=== PATIENT | male | born 1985 | race African-American/Black ===

== ENCOUNTER 2016-09-11 09:40 | Emergency (ER) | payer OTHER ==
[~2016-09-11] VITALS: Ht 182.9 cm; Wt 85.0 kg
[~2016-09-11 09:40] MED LIST: Z.0.NO CURRENT MEDS
[2016-09-11 09:43] VITALS: BP 100/62; PULSE 77; RESP 14; TEMP 98; O2SAT 97
--- NOTE | 2016-09-11 10:36 | PD ---
HPI Chief Complaint: Headache Time Seen by Provider: 10:26 Travel History International Travel<30 days: No Contact w/Intl Traveler<30days: No Traveled to known affect area: No History of Present Illness HPI 31-year-old male presents to the emergency department requesting headache medication and a work release note for his headaches. Patient has history of hydrocephalus when he was a child with shunt placement. He says the headaches that he is having he has been having since he was a child and they are consistent and unchanged. They happen about once a week for approximately 30 minutes and then they go away. He rates the headache 5/10 when they do occur. He says they are right-sided and they feel like an aching pain. He denies headache at this time. He denies nausea, vomiting. Denies focal deficits or weakness. Denies fever, chills. He has not taken any medications or tried any treatments to alleviate his symptoms. No known aggravating or relieving factors. Allergies to cultivated Oat Cali. Denies other significant past medical history. No other modifying factors or associated signs and symptoms. History Social History Alcohol Use: No Tobacco Use: No Allergies-Medications (Allergen,Severity, Reaction): Coded Allergies: Cultivated Oat Pollen (Verified Allergy, Unknown, 09/11/16) Reported Meds & Prescriptions Reported Meds & Active Scripts Active Reported No Current Meds (Miscellaneous Medication) [facility] [place] Review of Systems Except as stated in HPI: all other systems reviewed are Neg Physical Exam Narrative GENERAL: Well-nourished, well-developed patient, in no acute distress; afebrile , nontoxic-appearing SKIN: Warm and dry. HEAD: Atraumatic. Normocephalic. No facial droop noted. Tongue midline. EYES: Pupils equal and round at 3 mm with brisk reaction. No scleral icterus. No injection or drainage. PERRLA. EOMI. ENT: Mucosa pink and moist. Airway patent. NECK: Trachea midline. No lymphadenopathy. CARDIOVASCULAR: Regular rate . RESPIRATORY: No accessory muscle use. GASTROINTESTINAL: Flat. MUSCULOSKELETAL: No obvious deformities. No clubbing. No cyanosis. No edema. NEUROLOGICAL: Awake and alert. Oriented 3. No obvious cranial nerve deficits. Motor grossly within normal limits. Normal speech. No ataxia. No mid -line drift. Moves all extremities. 5/5 strength to all extremities. PSYCHIATRIC: Appropriate mood and affect; insight and judgment normal. Data Data Last Documented VS Vital Signs Date Time Temp Pulse Resp B/P Pulse Ox O2 Delivery O2 Flow Rate FiO2 09/11/16 10:08 60 18 99 Room Air 09/11/16 09:43 98.0 100/62 MDM Medical Screen Exam Complete: Yes Emergency Medical Condition: No Differential Diagnosis Chronic headaches, medical clearance, acute headaches Narrative Course 31-year-old male with complaint of chronic headaches since he was a child. He has had shunt placement very to hydrocephalus. He says his headaches are consistent with past headaches since he was a child, without worsening. He denies headache currently. When I ask him what his emergency is today he says he would like medication for his headaches and a work release note. Neuro exam is unremarkable. With the patient's headaches being consistent since childhood and patient denies headache at this time, or worsening of headaches, I do not feel imaging is necessary and the patient can follow up outpatient. Vital signs are stable and the patient is stable for outpatient follow-up and treatment. The patient has no urgent or emergent medical complaints. There is no emergent or urgent medical need at this time. I instructed the patient to follow up with their primary care provider. A medical screening exam was performed: At the time of evaluation the presenting medical condition was determined not to be of an emergent nature. The patient was given the option of receiving additional care, but declined. Patient was given options for additional community resources from which to obtain care. The Patient Has Been advised to seek medical attention for their presenting complaint. The patient has been advised to return to the ER at any time if an emergent condition develops. Primary Impression: Encounter for medical screening examination Condition: Stable Dania Thakur Sep 11, 2016 10:36
== END 2016-09-11 10:43 | disposition left against medical advice (07) ==
LOC: NEPB 09:40
DX: R51 Headache (principal)
CPT/HCPCS: 99281

== ENCOUNTER 2016-10-24 18:48 | Emergency (ER) | payer OTHER ==
[~2016-10-24] VITALS: Ht 182.9 cm; Wt 83.5 kg
[2016-10-24 18:49] VITALS: BP 120/62; PULSE 71; RESP 16; TEMP 98; O2SAT 100
[2016-10-24] MEDS ORDERED: ZOFR4TAB PO (19:22)
--- NOTE | 2016-10-24 19:25 | PD ---
HPI Chief Complaint: GI Complaint Time Seen by Provider: 19:22 Travel History International Travel<30 days: No Contact w/Intl Traveler<30days: No Traveled to known affect area: No History of Present Illness HPI 31-year-old black male presents to emergency Department with complaints of nausea. He has had a decrease in appetite and has had general malaise. He denies actually vomiting. He denies any fever or chills. No ear pain, sore throat, cough, shortness of breath, abdominal pain, diarrhea or urinary symptoms. Symptoms are mild. [facility] Past Medical History Narrative Medical Asthma Asthma: Yes Tetanus Vaccination: < 5 Years Past Surgical History Surgical History: No Previous Surgery Other Surgery: Yes (had trach as baby and fluid drained from brain as teenager. ) Social History Alcohol Use: No Tobacco Use: No Substance Use: No Allergies-Medications (Allergen,Severity, Reaction): Coded Allergies: Cultivated Oat Pollen (Verified Allergy, Unknown, 10/24/16) Reported Meds & Prescriptions Reported Meds & Active Scripts Active No Active Prescriptions or Reported Medications Review of Systems Except as stated in HPI: all other systems reviewed are Neg Physical Exam Narrative GENERAL: Well-developed, well-nourished in no acute distress. Nontoxic appearing. HEAD: Normocephalic, atraumatic. EYES: Pupils equal round and reactive. Extraocular motions intact. No scleral icterus. No injection or drainage. ENT: TMs clear without erythema. The external auditory canals clear. Nose: clear . Posterior pharynx is pink and moist. No tonsillar edema or exudate. Uvula midline. Airway patent. NECK: Trachea midline.Supple, nontender, moves head freely. No central bony tenderness or spasm. CARDIOVASCULAR: Regular rate and rhythm without murmurs, gallops, or rubs. RESPIRATORY: Clear to auscultation. Breath sounds equal bilaterally. No wheezes , rales, or rhonchi. GASTROINTESTINAL: Abdomen soft, non-tender, nondistended. No hepato-splenomegaly , or palpable masses. No guarding. EXTREMITIES: No clubbing, cyanosis, or edema. No joint tenderness, effusion, or edema noted. BACK: Nontender without deformity or crepitance. No flank tenderness. Data Data Last Documented VS Vital Signs Date Time Temp Pulse Resp B/P Pulse Ox O2 Delivery O2 Flow Rate FiO2 10/24/16 18:49 98.0 71 16 120/62 100 Room Air Orders Ondansetron Odt (Zofran Odt) (10/24/16 19:30) MDM Medical Decision Making Medical Screen Exam Complete: Yes Emergency Medical Condition: Yes Medical Record Reviewed: Yes Differential Diagnosis Differential diagnoses: Nausea, gastritis, viral syndrome Narrative Course Patient's given Zofran 4 mg by mouth. This is nausea Diagnosis Primary Impression: Nausea & vomiting Additional Impression: Nausea Patient Instructions: General Instructions Departure Forms: Tests/Procedures, Work Release Special Instructions: No work 10/25/16 Additional Instructions: Rest. Increase fluids. Clear liquids for 24 hours. Zofran for nausea. Tylenol or Advil for any fever or pain. Follow-up with a medical doctor in 2-3 days. Return to the ER for any problems. Med/Other Pt SpecificInfo: Prescription(s) given Scripts Ondansetron (Zofran)4 Mg Tab4 Mg PO Q6HR PRN (NAUSEA OR VOMITING) #6 TAB Prov:Danny Ba MD 10/24/16 Disposition: 01 DISCHARGE HOME Condition: Stable Jonathan Schumacher Oct 24, 2016 19:25
[2016-10-24] MEDS ORDERED: ONDANSETRON ODT 4 MG TAB PO ONE (19:30)
== END 2016-10-24 19:32 | disposition home or self-care (01) ==
LOC: NEPB 18:48
DX: R11.0 Nausea (principal); R63.0 Anorexia; R53.81 Other malaise; Z87.09 Personal history of other diseases of the respiratory system
CPT/HCPCS: 99283